=== PATIENT | male | born 1985 | race Two or more races ===

== ENCOUNTER 2021-06-27 05:06 | Emergency (ER) | payer OTHER ==
[~2021-06-27] VITALS: Ht 180.3 cm; Wt 117.9 kg
[~2021-06-27 05:06] MED LIST: BENADRYL ALLE12.5 MG PO; CIPRO500 MG PO; CYCLOBENZAPRINE10 MG PO; DIOVAN320 MG; ETODOLAC500 MG PO; FLAGYL500MG PO; FLONASE ALLERG9.9 ML NASAL; INTESTINEX1 CAP PO; INTESTINEX680 M1 PO; KETO10TA2 PO; LOSARTAN POTASS50 MG PO; NEOTUSS-D LIQU473 ML PO; OPCON-A EYE DRO15 ML OP; PRINIVIL5 MG; PROTONIX40 MG PO; RELAGESIC TABLE1 TAB PO; SKELAXIN800 MG PO; ZANTAC150 MG PO; ZITHROMAX500 MG PO; [UNRECOGNIZED DRUG - OTHER]
== END 2021-06-27 12:12 | disposition home or self-care (01) ==
LOC: ER 05:06
DX: R10.32 Left lower quadrant pain (principal)

== ENCOUNTER 2021-09-07 21:05 | Emergency (ER) | payer OTHER ==
[~2021-09-07] VITALS: Ht 180.3 cm; Wt 117.9 kg
[2021-09-07] MEDS ORDERED: CIPRO500 MG PO (23:14)
== END 2021-09-07 23:53 | disposition home or self-care (01) ==
LOC: ER 21:05
DX: N50.812 Left testicular pain (principal)

== ENCOUNTER 2021-10-03 05:29 | Emergency (ER) | payer OTHER ==
[~2021-10-03] VITALS: Ht 180.3 cm; Wt 117.9 kg
== END 2021-10-03 09:04 | disposition home or self-care (01) ==
LOC: ER 05:29
DX: N20.0 Calculus of kidney (principal); K57.92 Diverticulitis of intestine, part unspecified, without perforation or abscess without bleeding

== ENCOUNTER → 2022-03-19 | Emergency (ER) | payer OTHER ==
[~2022-03-19] VITALS: Ht 180.3 cm; Wt 117.9 kg
[~2022-03-19] MED LIST changes: +FLONASE16 GM NASAL; +PHENAGIL TABLE1 EACH PO
== END | disposition home or self-care (01) ==
LOC: ER 03:11
DX: J06.9 Acute upper respiratory infection, unspecified (principal); I10 Essential (primary) hypertension; Z88.1 Allergy status to other antibiotic agents

== ENCOUNTER 2022-05-26 17:05 | Emergency (ER) | payer OTHER ==
[~2022-05-26] VITALS: Ht 180.3 cm; Wt 93.9 kg
[2022-05-26] MEDS ORDERED: NORVASC5 MG PO (17:21)
== END 2022-05-26 20:27 | disposition home or self-care (01) ==
LOC: ER 17:05
DX: E11.65 Type 2 diabetes mellitus with hyperglycemia (principal); Z88.1 Allergy status to other antibiotic agents